=== PATIENT | male | born 1965 | race Caucasian/White ===

== ENCOUNTER 2016-09-24 10:19 | Inpatient (IN) | payer OTHER ==
[~2016-09-24] VITALS: Ht 188 cm; Wt 113.0 kg
[2016-09-24 11:19] LABS: Basophils # (auto) 0 uL; Basophils % (auto) 0.5 % (0.0-2.0); Eosinophils # (auto) 0.1 uL; Eosinophils % (auto) 0.9 % (0.0-7.0); Hematocrit 47.8 % (41.0-53.0); Hemoglobin 15.8 g/dL (13.5-17.5); Lymphocytes # (auto) 2.1 uL; Lymphocytes % (auto) 26.3 % (10.0-50.0); Mean Corpuscular Hemoglobin 32.9 pg (28.0-32.0); Mean Corpuscular Hgb Conc. 32.9 g/dL (32.0-36.0); Mean Corpuscular Volume 99.9 fL (80.0-100.0); Mean Platelet Volume 8.6 fL (7.4-10.4); Monocytes # (auto) 0.7 uL; Monocytes % (auto) 8.4 % (0.0-12.0); Neutrophils % (auto) 63.9 % (37.0-80.0); Platelet Count (auto) 211 10^3/uL (140-450); White Blood Cell 7.8 10^3/uL (4.4-10.8)
[2016-09-24 11:28] LABS: Albumin 3.7 g/dL (3.4-5.0); BUN/Creatinine Ratio 10.8; Bilirubin, Total 1.6 mg/dL (0.2-1.0); Calcium 8.7 mg/dL (8.5-10.1); Magnesium 2.3 mg/dL (1.6-2.6); Potassium 4.2 mmol/L (3.5-5.1); Total Protein 6.7 g/dL (6.4-8.2)
[2016-09-24 11:38] LABS: B-Type Natriuretic Peptide 1691.15 pg/mL (0-100); Temperature: 21.2 C (20.0-25.0)
[2016-09-24] MEDS ORDERED: ENOXAPARIN SOD 120 MG/0.8 ML SYRINGE SC ONE (12:15)
[2016-09-24] MEDS ORDERED: ASPirin 81 mg TAB PO ONE (12:15)
[2016-09-24] MEDS ORDERED: FUROSEMIDE 20 MG/2 ML VIAL IV ONE (12:15)
[2016-09-24 15:00] VITALS: BP 152/105
[2016-09-24] MEDS ORDERED: ALUM & MAG HYDROX-SIMETH LIQ(MAALOX) 30 ML PO PRN (15:15)
[2016-09-24] MEDS ORDERED: ACETAMINOPHEN 325 MG TAB PO PRN (15:15)
[2016-09-24] MEDS ORDERED: POTASSIUM CHL 10 Meq TABLET PO ONE (15:15)
[2016-09-24] MEDS ORDERED: ONDANSETRON HCL 4 MG/2 ML VIAL IV PRN (15:15)
[2016-09-24] MEDS ORDERED: cloNIDine HCL 0.1 MG TAB PO PRN (15:15)
[2016-09-24] MEDS ORDERED: NITROGLYCERIN 0.4 MG SL TAB SL PRN ×2 (15:15)
[2016-09-24] MEDS ORDERED: LORazepam 0.5 MG TAB PO PRN (15:15)
[2016-09-24] MEDS ORDERED: ZOLPIDEM TARTRATE 5 MG TAB PO PRN (15:15)
[2016-09-24] MEDS ORDERED: MORPHINE SULF INJ 2 MG/ML SYRINGE 1ML IV PRN ×2 (15:15)
[2016-09-24 15:58] LABS: Prothrombin Time 12.3 sec (9.37-12.3)
[2016-09-24 16:00] LABS: INR 1.19 (0.9-1.15)
[2016-09-24 17:17] VITALS: BP 141/92
[2016-09-24] MEDS: FUROSEMIDE 40 MG/4 ML VIAL IV SCH (18:25)
[2016-09-24 22:00] VITALS: BP 127/77
[2016-09-24] MEDS: ENOXAPARIN SOD 100 MG/1 ML SYRINGE SC SCH (22:09)
[2016-09-24] MEDS: ATORVASTATIN 20 MG TAB PO SCH (22:09)
[2016-09-24] MEDS: POTASSIUM CHL 10 Meq TABLET PO SCH (22:10)
[2016-09-24] MEDS: CARVEDILOL 3.125 MG TAB PO SCH (22:15)
[2016-09-24] MEDS: SODIUM CHLOR 0.9% PF (SALINE LOCK) 10ML VIAL IV SCH (22:23)
[2016-09-24] MEDS: ENALAPRIL MALEATE 2.5 MG TAB PO SCH (22:25)
[2016-09-25 05:00] VITALS: BP 129/91
[2016-09-25] MEDS: SODIUM CHLOR 0.9% PF (SALINE LOCK) 10ML VIAL IV SCH ×3 (05:25→22:00)
[2016-09-25] MEDS: FUROSEMIDE 40 MG/4 ML VIAL IV SCH (05:27)
[2016-09-25 06:45] LABS: Basophils # (auto) 0.1 uL; Basophils % (auto) 0.7 % (0.0-2.0); Eosinophils # (auto) 0.1 uL; Eosinophils % (auto) 1.3 % (0.0-7.0); Hematocrit 52.1 % (41.0-53.0); Hemoglobin 16.9 g/dL (13.5-17.5); Lymphocytes # (auto) 1.8 uL; Lymphocytes % (auto) 27.2 % (10.0-50.0); Mean Corpuscular Hemoglobin 32.7 pg (28.0-32.0); Mean Corpuscular Hgb Conc. 32.4 g/dL (32.0-36.0); Mean Corpuscular Volume 100.9 fL (80.0-100.0); Monocytes # (auto) 0.7 uL; Monocytes % (auto) 10.6 % (0.0-12.0); Neutrophils # (auto) 4.1 uL; Neutrophils % (auto) 60.2 % (37.0-80.0); Platelet Count (auto) 208 10^3/uL (140-450); Red Cell Distribution Width 16.8 % (11.6-16.0); White Blood Cell 6.8 10^3/uL (4.4-10.8)
[2016-09-25 07:13] LABS: Albumin 3.8 g/dL (3.4-5.0); BUN/Creatinine Ratio 12.5; Bilirubin, Total 2.9 mg/dL (0.2-1.0); Calcium 9.4 mg/dL (8.5-10.1); Magnesium 2.4 mg/dL (1.6-2.6); Potassium 4.1 mmol/L (3.5-5.1); Total Protein 7.3 g/dL (6.4-8.2)
[2016-09-25 09:00] VITALS: BP 126/68
[2016-09-25] MEDS: CLOPIDOGREL BISULFATE 75 MG TAB PO SCH (10:33)
[2016-09-25] MEDS: ENOXAPARIN SOD 100 MG/1 ML SYRINGE SC SCH (10:33)
[2016-09-25] MEDS: ASPirin 81 mg TAB PO SCH (10:36)
[2016-09-25] MEDS: ENALAPRIL MALEATE 2.5 MG TAB PO SCH (10:37)
[2016-09-25] MEDS: DOCUSATE SOD 100 MG CAP PO SCH (10:37)
[2016-09-25] MEDS: POTASSIUM CHL 10 Meq TABLET PO SCH (10:37)
[2016-09-25] MEDS: CARVEDILOL 3.125 MG TAB PO SCH (10:38)
[2016-09-25] MEDS ORDERED: DIGOXIN 0.25 MG TAB PO ONE (11:00)
[2016-09-25 13:00] VITALS: BP_SYST 126; BP_SYST 136; BP_DIAS 103; BP_DIAS 68
[2016-09-25 15:12] VITALS: BP 158/80
[2016-09-25 16:58] VITALS: BP 113/72
[2016-09-25 22:00] VITALS: BP 114/70
[2016-09-25] MEDS: ATORVASTATIN 20 MG TAB PO SCH (22:00)
[2016-09-26] MEDS: ENALAPRIL MALEATE 2.5 MG TAB PO SCH ×3 (01:01→21:57)
[2016-09-26] MEDS: ENOXAPARIN SOD 100 MG/1 ML SYRINGE SC SCH ×2 (01:01→09:35)
[2016-09-26] MEDS: POTASSIUM CHL 10 Meq TABLET PO SCH ×2 (01:02→09:34)
[2016-09-26 05:00] VITALS: BP 133/91
[2016-09-26] MEDS: SODIUM CHLOR 0.9% PF (SALINE LOCK) 10ML VIAL IV SCH ×3 (05:34→21:58)
[2016-09-26 09:00] VITALS: BP 130/83
[2016-09-26] MEDS: FUROSEMIDE 40 MG/4 ML VIAL IV SCH (09:34)
[2016-09-26] MEDS: DOCUSATE SOD 100 MG CAP PO SCH (09:34)
[2016-09-26] MEDS: DIGOXIN 0.25 MG TAB PO SCH (09:35)
[2016-09-26] MEDS: CLOPIDOGREL BISULFATE 75 MG TAB PO SCH (09:35)
[2016-09-26] MEDS: ASPirin 81 mg TAB PO SCH (09:35)
[2016-09-26 09:55] LABS: Albumin 3.6 g/dL (3.4-5.0); BUN/Creatinine Ratio 18.2; Bilirubin, Total 2.2 mg/dL (0.2-1.0); Magnesium 2.4 mg/dL (1.6-2.6); Potassium 4.5 mmol/L (3.5-5.1); Total Protein 6.7 g/dL (6.4-8.2)
[2016-09-26 12:14] LABS: Urine RBC None Seen /hpf (0 - 3)
[2016-09-26 12:24] LABS: Urine Bilirubin Negative (Negative); Urine Blood Negative /uL (Negative); Urine Color Yellow (Yellow); Urine Glucose Normal (Normal); Urine Ketone Negative (Negative); Urine Nitrite Negative (Negative); Urine Urobilinogen Normal (Negative); Urine pH 6.5 (5.0-8.0)
[2016-09-26 13:00] VITALS: BP 120/91
[2016-09-26] MEDS ORDERED: IODIXANOL 320MG/ML 100ML BTL IV ONE (13:39)
[2016-09-26] MEDS ORDERED: LIDOCAINE 2%HCL (LOCAL ANESTH.) INJ 20ML MDV ONE (13:39)
[2016-09-26] MEDS ORDERED: fentaNYL CITRATE 100 MCG/2 ML VL ONE (13:58)
[2016-09-26] MEDS ORDERED: EPTIFIBATIDE INJ (2MG/ML) 10ML VIAL IV ONE (13:59)
[2016-09-26] MEDS ORDERED: MIDAZOLAM HCL 1MG/1ML-2 ML VIAL ONE (13:59)
[2016-09-26] MEDS ORDERED: SODIUM CHLORIDE 0.9% 1,000 ML IV SCH (14:55)
[2016-09-26] MEDS ORDERED: MORPHINE SULF INJ 2 MG/ML SYRINGE 1ML IV PRN (15:00)
[2016-09-26] MEDS ORDERED: NITROGLYCERIN 0.4 MG SL TAB SL PRN (15:00)
[2016-09-26] MEDS ORDERED: ACETAMINOPHEN 500 MG TAB PO PRN (15:00)
[2016-09-26] MEDS ORDERED: SODIUM CHLORIDE 0.9% 1,000 ML IV ONE (15:14)
[2016-09-26 16:50] VITALS: BP 129/91
[2016-09-26 20:00] VITALS: BP 119/79
[2016-09-26] MEDS: ATORVASTATIN 20 MG TAB PO SCH (21:58)
[2016-09-27 05:13] VITALS: BP 125/92
[2016-09-27] MEDS: SODIUM CHLOR 0.9% PF (SALINE LOCK) 10ML VIAL IV SCH ×3 (05:19→22:15)
[2016-09-27 06:26] LABS: Basophils # (auto) 0.1 uL; Basophils % (auto) 1.1 % (0.0-2.0); Eosinophils # (auto) 0.1 uL; Eosinophils % (auto) 0.6 % (0.0-7.0); Hematocrit 53.7 % (41.0-53.0); Hemoglobin 17.6 g/dL (13.5-17.5); Lymphocytes # (auto) 1.8 uL; Lymphocytes % (auto) 20.5 % (10.0-50.0); Mean Corpuscular Hgb Conc. 32.8 g/dL (32.0-36.0); Mean Corpuscular Volume 100.6 fL (80.0-100.0); Mean Platelet Volume 8.3 fL (7.4-10.4); Monocytes # (auto) 1.1 uL; Monocytes % (auto) 12.2 % (0.0-12.0); Neutrophils # (auto) 5.5 uL; Neutrophils % (auto) 65.6 % (37.0-80.0); Platelet Count (auto) 205 10^3/uL (140-450); Red Cell Distribution Width 15.5 % (11.6-16.0); White Blood Cell 8.6 10^3/uL (4.4-10.8)
[2016-09-27 07:07] LABS: Albumin 3.3 g/dL (3.4-5.0); Calcium 8.3 mg/dL (8.5-10.1)
[2016-09-27 07:14] LABS: BUN/Creatinine Ratio 19.7; Bilirubin, Total 1.8 mg/dL (0.2-1.0); Total Protein 6.7 g/dL (6.4-8.2)
[2016-09-27 08:45] VITALS: BP 138/77
[2016-09-27] MEDS: ASPirin 81 mg TAB PO SCH (09:51)
[2016-09-27] MEDS: FUROSEMIDE 40 MG/4 ML VIAL IV SCH (09:51)
[2016-09-27] MEDS: DIGOXIN 0.25 MG TAB PO SCH (09:51)
[2016-09-27] MEDS: ENALAPRIL MALEATE 2.5 MG TAB PO SCH ×2 (09:51→22:14)
[2016-09-27] MEDS: DOCUSATE SOD 100 MG CAP PO SCH (09:52)
[2016-09-27] MEDS: CLOPIDOGREL BISULFATE 75 MG TAB PO SCH (09:52)
[2016-09-27] MEDS: POTASSIUM CHL 10 Meq TABLET PO SCH (09:52)
[2016-09-27 13:00] VITALS: BP 131/75
[2016-09-27] MEDS ORDERED: FUROSEMIDE 20 MG TAB PO ONE (13:00)
[2016-09-27 16:54] VITALS: BP 142/78
[2016-09-27] MEDS: SPIRONOLACTONE 25 MG TAB PO SCH (17:36)
[2016-09-27 21:57] VITALS: BP 136/77
[2016-09-27] MEDS: ATORVASTATIN 20 MG TAB PO SCH (22:14)
[2016-09-27] MEDS: CARVEDILOL 3.125 MG TAB PO SCH (22:15)
[2016-09-28] MEDS: SPIRONOLACTONE 25 MG TAB PO SCH (05:35)
[2016-09-28 05:37] LABS: Calcium 8.8 mg/dL (8.5-10.1); Magnesium 2.6 mg/dL (1.6-2.6); Potassium 3.9 mmol/L (3.5-5.1)
[2016-09-28] MEDS: SODIUM CHLOR 0.9% PF (SALINE LOCK) 10ML VIAL IV SCH (05:38)
[2016-09-28 05:39] VITALS: BP 112/69
[2016-09-28 05:39] LABS: BUN/Creatinine Ratio 18.6
[2016-09-28 08:51] VITALS: BP 110/73
[2016-09-28] MEDS: ASPirin 81 mg TAB PO SCH (09:31)
[2016-09-28] MEDS: DOCUSATE SOD 100 MG CAP PO SCH (09:31)
[2016-09-28] MEDS: POTASSIUM CHL 10 Meq TABLET PO SCH (09:31)
[2016-09-28] MEDS: DIGOXIN 0.25 MG TAB PO SCH (09:32)
[2016-09-28] MEDS: ENALAPRIL MALEATE 2.5 MG TAB PO SCH (09:32)
[2016-09-28] MEDS: CARVEDILOL 3.125 MG TAB PO SCH (09:32)
[2016-09-28] MEDS ORDERED: FUROSEMIDE 20 MG TAB PO SCH (10:00)
[2016-09-28 10:33] LABS: Hepatitis B Surface Antibody Negative
[2016-09-28] MEDS ORDERED: DIGO0.2566 PO (10:57)
[2016-09-28] MEDS ORDERED: SPIR25TA88 PO (10:57)
[2016-09-28] MEDS ORDERED: ATOR20TA50 PO (10:57)
[2016-09-28] MEDS ORDERED: FUR20T PO (10:57)
[2016-09-28] MEDS ORDERED: CAR3125T PO (10:57)
[2016-09-28] MEDS ORDERED: POTA-167 PO (10:57)
[2016-09-28] MEDS ORDERED: ASPI81CH43 PO (10:57)
[2016-09-28] MEDS ORDERED: ENA2.5T PO (10:57)
[2016-09-28 12:56] VITALS: BP 114/81
[2016-09-28 13:00] VITALS: BP 114/81
== END 2016-09-28 13:50 | disposition home or self-care (01) | DRG 280 ==
LOC: ER 10:22 → TELE 10:23 → TELE-EAST 18:14
PROVIDERS: ADMIT Internal Medicine; ATTEND Internal Medicine
PROC: 4A023N7 Measurement of Cardiac Sampling and Pressure, Left Heart, Percutaneous Approach (ICD-10-PCS; principal; 2016-09-26)
PROC: B2111ZZ Fluoroscopy of Multiple Coronary Arteries using Low Osmolar Contrast (ICD-10-PCS; 2016-09-26)
PROC: HZ3 Substance Abuse Treatment, Individual Counseling (ICD-10-PCS; 2016-09-26)
PROC: HZ34ZZZ Individual Counseling for Substance Abuse Treatment, Interpersonal (ICD-10-PCS; 2016-09-26)
DX: I21.4 Non-ST elevation (NSTEMI) myocardial infarction (principal); I50.21 Acute systolic (congestive) heart failure; N17.0 Acute kidney failure with tubular necrosis; I13.0 Hypertensive heart and chronic kidney disease with heart failure and stage 1 through stage 4 chronic kidney disease, or unspecified chronic kidney disease; B19.10 Unspecified viral hepatitis B without hepatic coma; R65.10 Systemic inflammatory response syndrome (SIRS) of non-infectious origin without acute organ dysfunction; I42.0 Dilated cardiomyopathy; G47.00 Insomnia, unspecified; N18.2 Chronic kidney disease, stage 2 (mild); E66.9 Obesity, unspecified; E78.5 Hyperlipidemia, unspecified; I25.10 Atherosclerotic heart disease of native coronary artery without angina pectoris; K76.1 Chronic passive congestion of liver; K76.89 Other specified diseases of liver; K80.20 Calculus of gallbladder without cholecystitis without obstruction; F10.10 Alcohol abuse, uncomplicated; Z82.49 Family history of ischemic heart disease and other diseases of the circulatory system; Z68.32 Body mass index [BMI] 32.0-32.9, adult; Z87.891 Personal history of nicotine dependence; Z83.3 Family history of diabetes mellitus; Z71.41 Alcohol abuse counseling and surveillance of alcoholic; F15.129 Other stimulant abuse with intoxication, unspecified
CPT/HCPCS: 36415; 71020; 76705; 80048; 80053; 80061; 80162; 81001; 83735; 83880; 84484; 85025; 85610; 86704; 86706; 86708; 86803; 87340; 93005; 93306; 96372; 96374; 96375; 99152; G0434; J2250; Q9967

== ENCOUNTER 2017-09-25 19:23 | Emergency (ER) | payer OTHER ==
[~2017-09-25] VITALS: Ht 188 cm; Wt 108.9 kg
[~2017-09-25 19:23] MED LIST: ASPI81CH43 PO; ATOR20TA50 PO; CAR3125T PO; DIGO0.2566 PO; ENA2.5T PO; FUR20T PO; POTA-167 PO; SPIR25TA88 PO
[2017-09-25 19:36] VITALS: BP 152/103
[2017-09-25 20:07] LABS: Eosinophils # (auto) 0.1 uL; Hematocrit 47.8 % (41.0-53.0); Nucleated Red Blood Cells % 0.1 %
[2017-09-25 20:09] LABS: Basophils # (auto) 0.1 uL; Basophils % (auto) 1.1 % (0.0-2.0); Eosinophils % (auto) 0.9 % (0.0-7.0); Hemoglobin 16.9 g/dL (13.5-17.5); Lymphocytes # (auto) 2.8 uL; Lymphocytes % (auto) 24.6 % (10.0-50.0); Mean Corpuscular Hemoglobin 35.5 pg (28.0-32.0); Mean Corpuscular Hgb Conc. 35.4 g/dL (32.0-36.0); Mean Corpuscular Volume 100.3 fL (80.0-100.0); Monocytes # (auto) 0.9 uL; Monocytes % (auto) 8.2 % (0.0-12.0); Neutrophils # (auto) 7.4 uL; Neutrophils % (auto) 65.2 % (37.0-80.0); Platelet Count (auto) 264 10^3/uL (140-450); Red Blood Cells 4.77 10^6/uL (4.5-5.90); Red Cell Distribution Width 14.4 % (11.8-14.3); White Blood Cell 11.3 10^3/uL (4.4-10.8)
[2017-09-25 20:21] LABS: INR 0.95 (0.9-1.15); Prothrombin Time 10.4 sec (9.37-12.3)
[2017-09-25 20:45] LABS: Potassium 4.1 mmol/L (3.5-5.1)
[2017-09-25 20:47] LABS: Bilirubin, Total 0.4 mg/dL (0.2-1.0); Total Protein 7.8 g/dL (6.4-8.2)
== END 2017-09-26 03:58 | disposition left against medical advice (07) ==
LOC: ER 19:23
DX: R10.11 Right upper quadrant pain (principal); Z53.21 Procedure and treatment not carried out due to patient leaving prior to being seen by health care provider
CPT/HCPCS: 36415; 80053; 82150; 83690; 85025; 85610; 85730; 93005

== ENCOUNTER 2017-09-26 12:52 | Emergency (ER) | payer OTHER | END 2017-09-26 12:57 | disposition left against medical advice (07) | LOC: ER 12:52 | DX: R07.9 Chest pain, unspecified (principal); Z53.21 Procedure and treatment not carried out due to patient leaving prior to being seen by health care provider ==

== ENCOUNTER 2024-05-25 14:29 | Inpatient (IN) | payer OTHER ==
[~2024-05-25] VITALS: Ht 188 cm; Wt 249.0 kg
[~2024-05-25 14:29] MED LIST changes: -ENA2.5T PO; +ENAL1TAB43 PO; -FUR20T PO; +FURO20TA4 PO; -POTA-167 PO; +POTA-211 PO; +SPIR25TA PO; -SPIR25TA88 PO
[2024-05-25 15:04] LABS: Basophils # (auto) 0.1 10 ^3/uL (0-0.2); Basophils % (auto) 0.7 % (0.0-2.0); Eosinophils # (auto) 0.1 10 ^3/uL (0-0.8); Eosinophils % (auto) 0.8 % (0.0-7.0); Hematocrit 46.2 % (41.0-53.0); Hemoglobin 16.1 g/dL (13.5-17.5); Lymphocytes # (auto) 2.5 10 ^3/uL (0.4-5.4); Lymphocytes % (auto) 20.9 % (10.0-50.0); Mean Corpuscular Hemoglobin 33.5 pg (28.0-32.0); Mean Corpuscular Hgb Conc. 34.9 g/dL (32.0-36.0); Mean Corpuscular Volume 96.1 fL (80.0-100.0); Monocytes # (auto) 0.9 10 ^3/uL (0-1.3); Monocytes % (auto) 7.1 % (0.0-12.0); Neutrophils # (auto) 8.5 10 ^3/uL (1.6-8.6); Neutrophils % (auto) 70.5 % (37.0-80.0); Platelet Count (auto) 206 10^3/uL (140-450); Red Blood Cells 4.81 10^6/uL (4.5-5.90); Red Cell Distribution Width 14.9 % (11.8-14.3); White Blood Cell 12.1 10^3/uL (4.4-10.8)
[2024-05-25 15:17] LABS: INR 1.08 (0.9-1.15); Partial Thromboplastin Time 27.2 SEC (24.5-34.5); Prothrombin Time 11.4 sec (9.3-11.8)
[2024-05-25 15:21] LABS: Alanine Aminotransferase 61 U/L (7-40); Albumin 4.7 g/dL (3.2-4.8); Alkaline Phosphatase 65 U/L (46-116); Anion Gap 11 (5-15); Aspartate Aminotransferase 32 U/L (13-40); BUN/Creatinine Ratio 13.4 (10.0-20.0); Bilirubin, Total 0.7 mg/dL (0.2-1.0); Blood Alcohol < 3.0 mg/dL (<10); Blood Urea Nitrogen 16 mg/dL (9-23); Calcium 9.8 mg/dL (8.7-10.4); Carbon Dioxide 16 mmol/L (20-30); Chloride 112 mmol/L (98-107); Glucose 81 mg/dL (74-106); Potassium 3.8 mmol/L (3.5-5.1); Sodium 139 mmol/L (136-145); Total Protein 7.1 g/dL (5.7-8.2)
[2024-05-25 16:53] LABS: Urine Bacteria None Seen /hpf (None Seen)
[2024-05-25 17:01] LABS: Urine Blood Negative /uL (Negative); Urine Clarity Clear (Clear); Urine Color Light-Yellow (Yellow); Urine Protein, UAD Negative (Negative); Urine Specific Gravity 1.016 (1.001-1.035); Urine Urobilinogen Normal (Negative); Urine WBC <1 /hpf (0 - 3)
[2024-05-25 17:05] LABS: Amphetamine Screen, Urine Neg (NEGATIVE); Barbiturate Scree,Urine Neg (NEGATIVE); Cannabinoid Screen, Urine Neg (NEGATIVE); Cocaine Screen, Urine Neg (NEGATIVE); Opiate Scree,Urine Neg (NEGATIVE); Phencyclidine Screen, Urine Neg (NEGATIVE)
[2024-05-25 18:37] LABS: Benzodiazephine Screen, Urine Neg (NEGATIVE)
[2024-05-25 19:47] VITALS: O2SAT 98
[2024-05-25] MEDS ORDERED: HYDROcodone-ACET 5/325MG TAB PO PRN (21:45)
[2024-05-25] MEDS ORDERED: ACETAMINOPHEN 325 MG TAB PO PRN (21:45)
[2024-05-25] MEDS ORDERED: ONDANSETRON HCL 4 MG/2 ML VIAL IV PRN (21:45)
[2024-05-25] MEDS ORDERED: HYDROmorphone HCL 2 MG/ML VL/or syr IV PRN (21:45)
[2024-05-25] MEDS ORDERED: DOCUSATE SOD 100 MG CAP PO PRN (21:45)
[2024-05-25] MEDS: ENALAPRIL MALEATE 2.5 MG TAB PO SCH (22:00)
[2024-05-25] MEDS: CARVEDILOL 3.125 MG TAB PO SCH (22:00)
[2024-05-25] MEDS: ATORVASTATIN 20 MG TAB PO SCH (22:04)
[2024-05-25] MEDS: SODIUM CHLOR 0.9% PF (SALINE LOCK) 10ML VIAL/SYR IV SCH (22:06)
[2024-05-26 04:13] LABS: Basophils # (auto) 0.1 10 ^3/uL (0-0.2); Basophils % (auto) 1.2 % (0.0-2.0); Eosinophils # (auto) 0.1 10 ^3/uL (0-0.8); Eosinophils % (auto) 1.5 % (0.0-7.0); Hematocrit 43.7 % (41.0-53.0); Hemoglobin 15.3 g/dL (13.5-17.5); Lymphocytes % (auto) 29.3 % (10.0-50.0); Mean Corpuscular Hemoglobin 33.7 pg (28.0-32.0); Mean Corpuscular Volume 96.2 fL (80.0-100.0); Monocytes # (auto) 0.7 10 ^3/uL (0-1.3); Monocytes % (auto) 9.9 % (0.0-12.0); Neutrophils # (auto) 3.9 10 ^3/uL (1.6-8.6); Neutrophils % (auto) 58.1 % (37.0-80.0); Nucleated Red Blood Cells % 0.1 %; Platelet Count (auto) 173 10^3/uL (140-450); Red Blood Cells 4.54 10^6/uL (4.5-5.90); Red Cell Distribution Width 14.4 % (11.8-14.3); White Blood Cell 6.7 10^3/uL (4.4-10.8)
[2024-05-26 04:40] LABS: Alanine Aminotransferase 49 U/L (7-40); Albumin 4.2 g/dL (3.2-4.8); Alkaline Phosphatase 45 U/L (46-116); Anion Gap 5 (5-15); Aspartate Aminotransferase 29 U/L (13-40); BUN/Creatinine Ratio 11.8 (10.0-20.0); Bilirubin, Total 0.8 mg/dL (0.2-1.0); Blood Urea Nitrogen 13 mg/dL (9-23); Calcium 9.4 mg/dL (8.7-10.4); Carbon Dioxide 24 mmol/L (20-30); Chloride 111 mmol/L (98-107); Glucose 84 mg/dL (74-106); Potassium 3.9 mmol/L (3.5-5.1); Sodium 140 mmol/L (136-145)
[2024-05-26 04:41] LABS: Total Protein 6.3 g/dL (5.7-8.2)
[2024-05-26] MEDS: SPIRONOLACTONE 25 MG TAB PO SCH (06:41)
[2024-05-26 07:25] VITALS: PULSE 60; RESP 16; O2SAT 98
[2024-05-26] MEDS ORDERED: DIGOXIN 0.25 MG PO SCH (10:00)
[2024-05-26] MEDS ORDERED: LORazepam 2MG/ML-1ML VIAL IV PRN (10:30)
[2024-05-26] MEDS: ASPirin 81 mg TAB PO SCH (11:10)
[2024-05-26] MEDS: ENOXAPARIN SOD 40 MG/0.4 ML SYRINGE SC SCH (11:10)
[2024-05-26] MEDS: FUROSEMIDE 20 MG TAB PO SCH (11:11)
[2024-05-26] MEDS: DIGOXIN 0.125 MG TAB PO SCH (11:13)
[2024-05-26 18:04] VITALS: PULSE 70; RESP 16; O2SAT 95
[2024-05-26 18:11] VITALS: BP 115/58; PULSE 60; RESP 16; TEMP 98.2; O2SAT 95
[2024-05-26 20:00] VITALS: PULSE 60; RESP 15
[2024-05-26 21:00] VITALS: BP 109/61; PULSE 64; RESP 15; TEMP 98; O2SAT 95
[2024-05-27] VITALS (8 sets, daily range): BP systolic 109–119; BP diastolic 55–78; PULSE 60–72; RESP 16–20; TEMP 97.8–98.6; O2SAT 92–95
[2024-05-27 06:19] LABS: Basophils # (auto) 0.1 10 ^3/uL (0-0.2); Basophils % (auto) 0.7 % (0.0-2.0); Eosinophils # (auto) 0.1 10 ^3/uL (0-0.8); Hematocrit 46.5 % (41.0-53.0); Hemoglobin 16.2 g/dL (13.5-17.5); Lymphocytes # (auto) 1.8 10 ^3/uL (0.4-5.4); Lymphocytes % (auto) 22.8 % (10.0-50.0); Mean Corpuscular Hemoglobin 33.3 pg (28.0-32.0); Mean Corpuscular Hgb Conc. 34.9 g/dL (32.0-36.0); Mean Corpuscular Volume 95.4 fL (80.0-100.0); Monocytes # (auto) 0.7 10 ^3/uL (0-1.3); Monocytes % (auto) 9.7 % (0.0-12.0); Neutrophils # (auto) 5.1 10 ^3/uL (1.6-8.6); Neutrophils % (auto) 65.8 % (37.0-80.0); Platelet Count (auto) 188 10^3/uL (140-450); Red Blood Cells 4.87 10^6/uL (4.5-5.90); Red Cell Distribution Width 14.3 % (11.8-14.3); White Blood Cell 7.7 10^3/uL (4.4-10.8)
[2024-05-27 06:40] LABS: Alanine Aminotransferase 44 U/L (7-40); Albumin 4.4 g/dL (3.2-4.8); Alkaline Phosphatase 49 U/L (46-116); Anion Gap 8 (5-15); Aspartate Aminotransferase 22 U/L (13-40); BUN/Creatinine Ratio 13.6 (10.0-20.0); Bilirubin, Total 0.9 mg/dL (0.2-1.0); Blood Urea Nitrogen 15 mg/dL (9-23); Calcium 9.7 mg/dL (8.7-10.4); Carbon Dioxide 21 mmol/L (20-30); Chloride 108 mmol/L (98-107); Glucose 106 mg/dL (74-106); Potassium 3.9 mmol/L (3.5-5.1); Sodium 137 mmol/L (136-145); Total Protein 6.7 g/dL (5.7-8.2)
[2024-05-27] MEDS ORDERED: ATOR40TA52 PO (14:01)
== END 2024-05-27 21:00 | disposition home or self-care (01) | DRG 69 ==
LOC: ER 14:29 → TELE 21:42 → TELE-WESTW 05-26 18:04
PROVIDERS: ADMIT Internal Medicine Pulmonary Disease; ATTEND Internal Medicine Pulmonary Disease
DX: G45.9 Transient cerebral ischemic attack, unspecified (principal); I13.0 Hypertensive heart and chronic kidney disease with heart failure and stage 1 through stage 4 chronic kidney disease, or unspecified chronic kidney disease; I50.22 Chronic systolic (congestive) heart failure; Z68.45 Body mass index [BMI] 70 or greater, adult; I42.0 Dilated cardiomyopathy; E78.5 Hyperlipidemia, unspecified; N18.9 Chronic kidney disease, unspecified; E66.01 Morbid (severe) obesity due to excess calories; Z95.810 Presence of automatic (implantable) cardiac defibrillator; Z82.49 Family history of ischemic heart disease and other diseases of the circulatory system
CPT/HCPCS: 36415; 70450; 70551; 71045; 80053; 80307; 80320; 81001; 82140; 82962; 83605; 84484; 85025; 85610; 85730; 87040; 93005; 93306; 93886; 95819; 96372; 99291; G0378